=== PATIENT | male | born 1950 | race Caucasian/White ===

== ENCOUNTER 2017-08-27 05:11 | Emergency (ER) | payer OTHER ==
[2017-08-27 05:30] VITALS: BP 136/83; TEMP 97.6; O2SAT 98
--- NOTE | 2017-08-27 05:47 | ED.PDOC ---
History of Present Illness - General Chief Complaint: GI Problem Stated Complaint: constipated Time Seen by Provider: 08/27/17 05:36 Source: patient, family - History of Present Illness Initial Comments: KNEE SURGERY AUG 18. NARCOTICS CAUSING CONSTIPATION. HE'S TAKING MIRALAX AND DULCLAX. SMALL BM YESTERDAY AND DIARRHEA TODAY. IS PASSING FLATUS. Timing/Duration: getting worse Severity: moderate Improving Factors: nothing Worsening Factors: nothing Associated Symptoms: denies symptoms Allergies/Adverse Reactions: Allergies NO KNOWN ALLERGY Allergy (Verified 08/27/17 05:29) Home Medications: Ambulatory Orders Valsartan-Hydrochlorothiazide 1 ea PO DAILY 08/27/17 Review of Systems - Review of Systems Gastrointestinal/Abdominal: States: constipation. Denies: abdominal pain, diarrhea, nausea, vomiting All other Systems: Reviewed and Negative Past Medical History (General) - Patient Medical History Hx Seizures: No Hx Stroke: No Hx Dementia: No Hx Asthma: No Hx of COPD: No Hx Cardiac Disorders: No Hx Congestive Heart Failure: No Hx Pacemaker: No Hx Hypertension: Yes Hx Thyroid Disease: No Hx Diabetes: No Hx Gastroesophageal Reflux: No Hx Renal Disease: No Hx Cancer: No Hx of HIV: No Hx Hepatitis C: No Hx MRSA: No Surgical History: other - Vaccination History Hx Tetanus, Diphtheria Vaccination: No Hx Influenza Vaccination: Yes Hx Pneumococcal Vaccination: No - Social History Hx Tobacco Use: No Hx Alcohol Use: No Hx Substance Use: No Hx Substance Use Treatment: No Hx Depression: No Family Medical History - Family History Mother Family History: Unknown Living Status: Still Living Physical Exam - Physical Exam General Appearance: Alert, No apparent distress Respiratory: lungs clear, normal breath sounds, no respiratory distress Cardiovascular/Chest: normal peripheral pulses, regular rate, rhythm, no edema, no gallop, no JVD, no murmur Peripheral Pulses: radial,right: 2+, radial,left: 2+ Gastrointestinal/Abdominal: normal bowel sounds, non tender, soft, no organomegaly, no pulsatile mass Rectal Exam: deferred Extremity: normal range of motion, normal inspection Neurologic: television presenter II-XII nml as tested, alert Skin Exam: normal color, warm/dry Progress - Results/Orders Results/Orders: OPIOID-0INDUCED CONSTIPATION. I OFFERED RX FOR GO-LYTELY BUT PT'S SAID THEY HAVE IT AT HOME AND JUST DIDN'T KNOW ABOUT USING IT. I SHANNEN DOSAGE INSTRUCTIONS. I ALSO SUGGESTED 1-TIME DOSE OF MAG CITRATE. I EXPLAINED CONSTIPATION MAY PERSIST LONG NEEDING NARCOTICS FOR POST- SURGICAL PAIN CONTROL AND MAY PERSIST UP TO 1 WEEK. Departure - Departure Clinical Impression: Constipation Disposition: Discharge to Home or Self Care Condition: Good Departure Forms: ED Discharge - Pt. Copy, Patient Portal Self Enrollment Instructions: DI for Constipation Diet: other - Eat only fruits, vegetables, and water until constipation resolves. Activity: as per physical therapy Referrals: Melvin Carmichael MD [Primary Care Provider] - 1-2 Weeks Home Medications: Ambulatory Orders Valsartan-Hydrochlorothiazide 1 ea PO DAILY 08/27/17
== END 2017-08-27 05:54 | disposition home or self-care (01) ==
LOC: ER 05:11
DX: K59.00 Constipation, unspecified (principal); I10 Essential (primary) hypertension

== ENCOUNTER → 2017-10-26 | Outpatient (CLI) | payer MEDICARE, OTHER | LOC: GMAB 11:31 | PROVIDERS: ATTEND Family Medicine | DX: R20.8 Other disturbances of skin sensation (principal); R20.2 Paresthesia of skin ==

== ENCOUNTER → 2018-10-28 | Outpatient (CLI) | payer MEDICARE, OTHER | LOC: GMAE 11:01 | PROVIDERS: ATTEND Family Medicine | DX: I10 Essential (primary) hypertension (principal); Z12.5 Encounter for screening for malignant neoplasm of prostate | CPT/HCPCS: 84443; G0103 ==

== ENCOUNTER → 2018-10-29 | Outpatient (CLI) | payer MEDICARE, OTHER ==
[~2018-10-29] MED LIST: ALBUTEROL SULFATE 2.5 MG/3 ML VIAL NEB ONE
== END ==
LOC: LAB.O 09:21
PROVIDERS: ATTEND Family Medicine
DX: J45.21 Mild intermittent asthma with (acute) exacerbation (principal)
CPT/HCPCS: 94060; J7611

== ENCOUNTER → 2018-12-08 | Outpatient (CLI) | payer MEDICARE, OTHER | LOC: GMAE 15:03 | PROVIDERS: ATTEND Family Medicine | DX: G60.3 Idiopathic progressive neuropathy (principal) ==

== ENCOUNTER → 2019-11-30 | Outpatient (CLI) | payer MEDICARE, OTHER | DX: M51.16 Intervertebral disc disorders with radiculopathy, lumbar region (principal); M24.28 Disorder of ligament, vertebrae; M48.062 Spinal stenosis, lumbar region with neurogenic claudication; M46.96 Unspecified inflammatory spondylopathy, lumbar region; Z12.5 Encounter for screening for malignant neoplasm of prostate; I10 Essential (primary) hypertension | CPT/HCPCS: 72148; 84443; G0103 ==